=== PATIENT | male | born 1995 | race Caucasian/White ===

== ENCOUNTER 2018-12-16 09:20 | Emergency (ER) | payer SELFPAY ==
[~2018-12-16] VITALS: Ht 188 cm; Wt 95.5 kg
[~2018-12-16 09:20] MED LIST: ALBUTEROL0.09 MG/A1 IH; AMOXICILLIN 25250 MG PO; AMOXICILLIN 50500 MG PO; CEPHALEXIN250 M1 PO; CEPHALEXIN500 M1 PO; INHALER; NO HOME MEDICATIONS; NORCO 325 MG-51 TAB PO; PEN-VEE K500 MG PO; PHENERGAN W/CO120 ML PO; PREDNISONE10 MG PO; PREDNISONE20 MG PO; SINGULAIR; VENTOLIN0.09 MG IH; ZYRTEC 10MG
[2018-12-16 09:25] VITALS: BP 134/83; TEMP 97.4
[2018-12-16] MEDS ORDERED: ZITHROMAX Z PA250 MG PO (10:38)
[2018-12-16] MEDS ORDERED: PROVENTIL0.09 MG/A1 IH (10:38)
[2018-12-16 10:50] VITALS: PULSE 91
== END 2018-12-16 10:50 | disposition home or self-care (01) ==
LOC: COL.ER 09:20
DX: J20.9 Acute bronchitis, unspecified (principal); F17.210 Nicotine dependence, cigarettes, uncomplicated

== ENCOUNTER 2019-01-17 17:47 | Emergency (ER) | payer SELFPAY ==
[~2019-01-17] VITALS: Ht 190.5 cm; Wt 95.5 kg
[~2019-01-17 17:47] MED LIST changes: +PROVENTIL0.09 MG/A1 IH; +ZITHROMAX Z PA250 MG PO
[2019-01-17 17:53] VITALS: BP 123/60; PULSE 105
[2019-01-17] MEDS ORDERED: NORCO 325 MG-51 TAB PO (18:23)
[2019-01-17] MEDS ORDERED: AMOXICILLIN875 MG PO (18:24)
[2019-01-17 19:04] VITALS: TEMP 97.4
== END 2019-01-17 19:04 | disposition home or self-care (01) ==
LOC: COL.ER 17:47
DX: K02.9 Dental caries, unspecified (principal); J45.909 Unspecified asthma, uncomplicated; F17.210 Nicotine dependence, cigarettes, uncomplicated
CPT/HCPCS: J1885

== ENCOUNTER 2019-03-19 04:36 | Emergency (ER) | payer SELFPAY ==
[~2019-03-19] VITALS: Ht 190.5 cm; Wt 100.0 kg
[~2019-03-19 04:36] MED LIST changes: +AMOXICILLIN875 MG PO
[2019-03-19 04:38] VITALS: BP 142/72; TEMP 99.9
[2019-03-19] MEDS ORDERED: AMOXICILLIN 50500 MG PO (05:08)
[2019-03-19 05:17] VITALS: PULSE 80
== END 2019-03-19 05:18 | disposition home or self-care (01) ==
LOC: COL.ER 04:36
DX: K02.9 Dental caries, unspecified (principal); F17.210 Nicotine dependence, cigarettes, uncomplicated